=== PATIENT | male | born 1980 | race Caucasian/White ===

== ENCOUNTER 2016-08-29 19:40 | Emergency (ER) | payer BC ==
[~2016-08-29] VITALS: Ht 180.3 cm; Wt 87.5 kg
[~2016-08-29 19:40] MED LIST: BNT20 PO; FEXO1TAB46 PO; FLUT0.0529; METR-163 PO; MISCCAP80 PO; PEDICHW50 PO; PRED20TA2 PO; RBTDACL PO; SULF500T8 PO; TRIA0.1C20 TOP
[2016-08-29 19:48] VITALS: TEMP 36.6; Ht 180.3 cm; Wt 87.5 kg
[2016-08-29] MEDS ORDERED: SODIUM CHLORIDE 0.9% 1000ML 500 ML IV STA (21:28)
[2016-08-29] MEDS ORDERED: ONDANSETRON INJ 2 MG/ML 2 ML VIAL IV STA (21:28)
[2016-08-29] MEDS ORDERED: SODIUM CHLORIDE 0.9% 1000ML 1,000 ML IV STA (21:28)
[2016-08-29] MEDS ORDERED: KETOROLAC TROMETHAMINE 30 MG/ML VIAL IV STA (21:28)
[2016-08-29 21:56] LABS: HEMATOCRIT 42.8 % (42-52); MEAN CELL VOLUME 85.3 fL (80-100); MEAN CORPUSCULAR HEMOGLOBIN 30.1 pg (25-34); MEAN CORPUSCULAR HGB CONC 35.3 g/dl (32-36); MEAN PLATELET VOLUME 9.6 fL (7.4-10.4); PLATELET COUNT 187 K/uL (130-400); RED BLOOD COUNT 5.02 M/uL (4.7-6.1); WHITE BLOOD COUNT 6.61 K/uL (4.8-10.8)
[2016-08-29 22:02] LABS: MANUAL MICROSCOPIC REQUIRED? NO; REVIEW REQ? NO; URINE APPEARANCE CLEAR (CLEAR); URINE BILIRUBIN NEG (NEG); URINE COLOR DK YELLOW; URINE NITRITE NEG (NEG); URINE PH 5.5 (4.5-7.5); UROBILINOGEN NEG (NEG); ZZUR CULT IF INDIC CLEAN CATCH NO
[2016-08-29 22:14] LABS: BUN/CREATININE RATIO 17.5 (10-20); CALCIUM 8.7 mg/dl (8.5-10.1); CREATININE 1.1 mg/dl (0.60-1.40); POTASSIUM 3.8 mmol/L (3.5-5.1)
[2016-08-29 22:16] LABS: ALB/GLOB RATIO 1.7 (0.9-2)
--- NOTE | 2016-08-29 22:22 | DIAGNOSTIC IMAGING REPORT ---
CT OF THE ABDOMEN AND PELVIS WITHOUT CONTRAST, STONE PROTOCOL CLINICAL HISTORY: Right flank pain. Lower back pain. COMPARISON STUDY: CT of the abdomen and pelvis November 12, 2008 and MR enterography June 30, 2014. TECHNIQUE: Helical axial images of the abdomen and pelvis were obtained without IV or oral contrast according to renal stone protocol. FINDINGS: There is no hydronephrosis. There is a punctate calculus within the lower pole of the left kidney. Note is made of a 5 mm distal right ureteral calculus. There is no upstream dilatation. There is mild right periureteral infiltration. No additional ureteral calculi are identified. Evaluation the remainder of the abdomen and pelvis is suboptimal on this unenhanced exam. Unenhanced images of the liver, spleen, adrenal glands and pancreas are normal. There is no evidence for a bowel obstruction. There are numerous small pericolonic lymph nodes adjacent to the ascending colon and the transverse colon. Calcification within the right aspect of the prostate gland is incidentally noted. IMPRESSION: 1. 5 mm nonobstructing distal right ureteral calculus. No hydronephrosis or hydroureter. Minimal right periureteral infiltration. 2. Punctate left renal calculus. 3. Numerous small pericolonic lymph nodes adjacent to the ascending colon and transverse colon which represent a nonspecific finding. Electronically signed by: Wolfgang Celestin M.D. 08/29/2016 10:21 PM Dictated Date/Time: 08/29/2016 10:15 PM
[2016-08-29] MEDS ORDERED: TAMSULOSIN HCL 0.4 MG CAP PO ONE (22:30)
[2016-08-29] MEDS ORDERED: ONDA4TAB10 SL (22:36)
[2016-08-29] MEDS ORDERED: TAMS0.4C38 PO (22:36)
[2016-08-29] MEDS ORDERED: ONDANSETRON HOME PACK 4MG OD TAB PO ONE (22:45)
[2016-08-29 22:51] VITALS: BP 138/91; PULSE 88; O2SAT 100
--- NOTE | 2016-08-29 23:45 | EMERGENCY ROOM VISIT NOTE ---
History Report prepared by Sarah: Kendal Dawn Under the Supervision of: Dr. Emanuel Mitchell M.D. First contact with patient: 21:22 Chief Complaint: BACK PAIN Stated Complaint: LOWER RIGHT BACK PAIN, LOWER RIGHT ABDOMINAL PAIN History of Present Illness The patient is a 35 year old male who presents to the Emergency Room with complaints of worsening lower back pain beginning one week prior to arrival. He states that the pain radiates around to his right lower abdomen. The patient states that the pain will wax and wan in severity. He rates his pain as 8/10 in severity when it is at its worst. The patient did have back surgery a few years ago. His last PET scan did show kidney stones forming. He denies being dehydrated, he denies testicular pain. Source of History: patient Onset: one week [employer] Position: back (lower) Symptom Intensity: 8/10 Timing: waxes/wanes (in severity), worsening Associated Symptoms: + abdominal pain Note: Patient denies dehydration or testicular pain. Review of Systems See HPI for pertinent positives & negatives. A total of 10 systems reviewed and were otherwise negative. 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 Family History Cancer Diabetes mellitus Heart disease Kidney disease Social History Smoking Status: Never Smoker Smokeless Tobacco Use: No Alcohol Use: none Marital Status: Housing Status: lives with significant other Occupation Status: employed Current/Historical Medications Scheduled Ondasetron Odt (Zofran Odt), 4 MG SL Q6H Pediatric Multiple Vitamin W/ (Flintstones Chewable), 1 TAB PO QAM Probiotic Product (Probiotic), 1 CAP PO DAILY Sulfasalazine (Azulfidine), 1,000 MG PO TID Tamsulosin Hcl (Flomax), 0.4 MG PO DAILY Scheduled PRN Fexofenadine Hcl (Court), 180 MG PO DAILY PRN for Nasal Congestion Fluticasone Propionate (Nasal) (Flonase), 2 SPRAYS NA BID PRN for Nasal Congestion Allergies Coded Allergies: No Known Allergies (Verified , 08/29/16) Physical Exam Vital Signs Date Time Temp Pulse Resp B/P Pulse Ox O2 Delivery O2 Flow Rate FiO2 08/29/16 22:51 88 18 138/91 100 08/29/16 22:07 90 18 134/87 96 Room Air 08/29/16 19:48 36.6 103 20 139/97 97 Room Air Physical Exam GENERAL: Patient is in no acute distress. HEENT: No acute trauma, normocephalic atraumatic, mucous membranes moist, no nasal congestion, no scleral icterus. NECK: No stridor, no adenopathy, no meningismus, trachea is midline. LUNGS: Clear to auscultation bilaterally, no wheeze, no rhonchi, breath sounds equal. HEART: Without murmurs gallops or rubs, regular rate and rhythm. ABDOMEN: Soft, tenderness to right lower quadrant, bowel sounds positive, no hernias, no peritonitis. BACK: Right flank discomfort with percussion. EXTREMITIES: No cyanosis or edema, full range of motion of all the joints without pain or difficulty, no signs for acute trauma. NEUROLOGIC: Oriented x 3, no acute motor or sensory deficits, no focal weakness. SKIN: No rash, no jaundice, no diaphoresis. Medical Decision & Procedures ER Provider Diagnostic Interpretation: CT results as stated below per my review and radiologist interpretation: CT OF THE ABDOMEN AND PELVIS WITHOUT CONTRAST, STONE PROTOCOL CLINICAL HISTORY: Right flank pain. Lower back pain. COMPARISON STUDY: CT of the abdomen and pelvis November 12, 2008 and MR enterography June 30, 2014. TECHNIQUE: Helical axial images of the abdomen and pelvis were obtained without IV or oral contrast according to renal stone protocol. FINDINGS: There is no hydronephrosis. There is a punctate calculus within the lower pole of the left kidney. Note is made of a 5 mm distal right ureteral calculus. There is no upstream dilatation. There is mild right periureteral infiltration. No additional ureteral calculi are identified. Evaluation the remainder of the abdomen and pelvis is suboptimal on this unenhanced exam. Unenhanced images of the liver, spleen, adrenal glands and pancreas are normal. There is no evidence for a bowel obstruction. There are numerous small pericolonic lymph nodes adjacent to the ascending colon and the transverse colon. Calcification within the right aspect of the prostate gland is incidentally noted. IMPRESSION: 1. 5 mm nonobstructing distal right ureteral calculus. No hydronephrosis or hydroureter. Minimal right periureteral infiltration. 2. Punctate left renal calculus. 3. Numerous small pericolonic lymph nodes adjacent to the ascending colon and transverse colon which represent a nonspecific finding. Electronically signed by: Wolfgang Celestin M.D. 08/29/2016 10:21 PM Dictated Date/Time: 08/29/2016 10:15 PM Laboratory Results 08/29/16 21:45 08/29/16 21:45 Test 08/29/16 21:11 08/29/16 21:45 Urine Color DK YELLOW Urine Appearance CLEAR (CLEAR) Urine pH 5.5 (4.5-7.5) Urine Specific [place] 1.030 (1.000-1.030) Urine Protein NEG (NEG) Urine Glucose (UA) NEG (NEG) Urine Ketones NEG (NEG) Urine Occult Blood 3+ (NEG) Urine Nitrite NEG (NEG) Urine Bilirubin NEG (NEG) Urine Urobilinogen NEG (NEG) Urine Leukocyte Esterase NEG (NEG) Urine WBC (Auto) 1-5 /hpf (0-5) Urine RBC (Auto) >30 /hpf (0-4) Urine Hyaline Casts (Auto) 1-5 /lpf (0-5) Urine Epithelial Cells (Auto) 10-20 /lpf (0-5) Urine Bacteria (Auto) NEG (NEG) Red Blood Count 5.02 M/uL (4.7-6.1) Mean Corpuscular Volume 85.3 fL (80-100) Mean Corpuscular Hemoglobin 30.1 pg (25-34) Mean Corpuscular Hemoglobin Concent 35.3 g/dl (32-36) RDW Standard Deviation 37.1 fL (36.4-46.3) RDW Coefficient of Variation 12.1 % (11.5-14.5) Mean Platelet Volume 9.6 fL (7.4-10.4) Anion Gap 7.0 mmol/L (3-11) Est Creatinine Clear Calc Drug Dose 100.7 ml/min Estimated GFR () 101.0 Estimated GFR (Non- 87.1 BUN/Creatinine Ratio 17.5 (10-20) Calcium Level 8.7 mg/dl (8.5-10.1) Total Bilirubin 0.3 mg/dl (0.2-1) Aspartate Amino Transf (AST/SGOT) 14 U/L (15-37) Alanine Aminotransferase (ALT/SGPT) 28 U/L (12-78) Alkaline Phosphatase 115 U/L (45-117) Total Protein 6.3 gm/dl (6.4-8.2) Albumin 4.0 gm/dl (3.4-5.0) Globulin 2.3 gm/dl (2.5-4.0) Albumin/Globulin Ratio 1.7 (0.9-2) Laboratory results reviewed by me. Medications Administered Medications (Trade) Dose Ordered Sig/Kori Route Start Time Stop Time Status Last Admin Dose Admin Sodium Chloride (Nss 1000ml) 500 ml @ 999 mls/hr Q31M STAT IV 08/29/16 21:28 08/29/16 21:58 DC 08/29/16 21:43 999 MLS/HR Ondansetron HCl 4 mg 4 mg NOW STAT IV 08/29/16 21:28 08/29/16 21:30 DC 08/29/16 21:44 4 MG Sodium Chloride (Nss 1000ml) 1,000 ml @ 200 mls/hr Q5H STAT IV 08/29/16 21:28 08/29/16 23:15 DC 08/29/16 21:43 200 MLS/HR Ketorolac Tromethamine (Toradol Inj) 30 mg NOW STAT IV 08/29/16 21:28 08/29/16 21:30 DC 08/29/16 21:44 30 MG Tamsulosin HCl (Flomax Cap) 0.4 mg NOW ONCE PO 08/29/16 22:30 08/29/16 22:31 DC 08/29/16 22:48 0.4 MG Ondansetron HCl (ZOFRAN ODT 4MG Home Pack) 1 homepack UD ONCE PO 08/29/16 22:45 08/29/16 22:46 DC 08/29/16 22:48 1 HOMEPACK ED Course 2121: The patient was evaluated in room A4. A complete history and physical exam was performed. 2122: Urine Dip shows 250 blood and small ketones. 2127: Toradol Inj 30 mg IV, Sodium Chloride 1,000 ml @ 200 mls/hr IV, Zofran Inj 4 mg IV, Sodium Chloride 500 ml @ 999 mls/hr IV. 2229: Flomax Cap 0.4 mg PO. 2233: Reevaluated the patient. Discussed results and discharge instructions: He verbalized understanding and agreement. The patient is ready for discharge. Medical Decision The patient is a 35 year old male who presents to the ED with complaints of lower back pain. Differential diagnoses considered include renal colic, UTI, hepatitis, pancreatitis, musculoskeletal pain, hernia. There is no leukocytosis or concerning anemia. No significant electrolyte abnormality, kidney failure or hepatitis. Urinalysis shows hematuria, no infection. Abdominal and pelvis CT shows a 5 mm distal right ureteral stone. Some abdominal adenopathy was noted. The patient was given IV saline, IV Zofran, oral Flomax and IV Toradol, he is more comfortable. The patient is being discharged with a urine strainer, Flomax, Motrin/Tylenol for pain. He will follow with his doctor's office for a possible urology referral. He can return here for uncontrolled pain, fever or vomiting. Impression Primary Impression: Renal colic Additional Impression: Hematuria Scribe Attestation The scribe's documentation has been prepared under my direction and personally reviewed by me in its entirety. I confirm that the note above accurately reflects all work, treatment, procedures, and medical decision making performed by me. Departure Information Dispostion Home / Self-Care Prescriptions Tamsulosin Hcl (FLOMAX) 0.4 Mg Cap 0.4 MG PO DAILY, #10 CAP Prov: Emanuel Mitchell M.D. 08/29/16 Ondasetron Odt (ZOFRAN ODT) 4 Mg Tab 4 MG SL Q6H for Nausea, #15 TAB Prov: Emanuel Mitchell M.D. 08/29/16 Referrals Gerri Liu D.O. (PCP) Forms HOME CARE DOCUMENTATION FORM, IMPORTANT VISIT INFORMATION, Work Instructions Patient Instructions My [facility] Additional Instructions strain all the urine for the stone stay well hydrated motrin and tylenol for pain flomax daily to help pass the stone see your doctor for possible urology referral return for fever, vomiting or uncontrolled pain Problem Qualifiers
== END 2016-08-29 22:53 | disposition home or self-care (01) ==
LOC: C.EDB 19:42 → C.EDA 22:53
DX: N20.2 Calculus of kidney with calculus of ureter (principal); R31.9 Hematuria, unspecified; B19.20 Unspecified viral hepatitis C without hepatic coma; Z85.71 Personal history of Hodgkin lymphoma

== ENCOUNTER 2022-11-13 04:57 | Inpatient (IN) ==
[2022-11-13] MEDS ORDERED: ALUMINUM/MAGNESIUM SUSP 30 ML UDC ONE (05:17)
[2022-11-13] MEDS ORDERED: fentaNYL citrate PF 100 MCG/2 ML VIAL IV STA (05:19)
[2022-11-13] MEDS ORDERED: FAMOTIDINE 20MG IV PUSH 20 MG/5 ML SYR IV STA (05:21)
[2022-11-13] MEDS ORDERED: METOPROLOL TARTRATE 1 MG/ML VIAL IV STA (05:22)
[2022-11-13 05:42] LABS: Basophils # (auto) 0.05 K/uL (0-0.2); Basophils % (auto) 0.5 %; Eosinophils # (auto) 0.22 K/uL (0-0.50); Eosinophils % (auto) 2.3 %; Hematocrit (blood only) 46.8 % (42.0-52.0); Immature Granulocytes # (auto) 0.06 K/uL (0.01-0.20); Immature Granulocytes % (auto) 0.6 %; Lymphocytes # (auto) 1.93 K/uL (1.2-3.4); Lymphocytes % (auto) 20.6 %; Mean Corpuscular Hemoglobin 28.3 pg (25.0-34.0); Mean Corpuscular Hgb Conc 34.2 g/dL (32.0-36.0); Mean Corpuscular Volume 82.8 fL (80.0-100.0); Mean Platelet Volume 10.1 fL (9.4-12.4); Monocytes % (auto) 8.5 %; Neutrophils # (auto) 6.31 K/uL (1.40-6.50); Neutrophils % (auto) 67.5 %; Platelet Count 211 K/uL (130-400); RDW Coefficient of Variation 12.4 % (11.5-14.5); RDW Standard Deviation 37.4 fL (36.4-46.3); Red Blood Count 5.65 M/uL (4.70-6.10); White Blood Count 9.37 K/ul (4.8-10.8)
[2022-11-13 05:50] LABS: Albumin Globulin Ratio 2.3 (0.9-2); Albumin Level 4.3 gm/dl (3.4-5.0); BUN Creatinine Ratio 18.4 (10-20); Bilirubin,Total 0.6 mg/dl (0.2-1.0); Creatinine Clr Calc Pharmacy 91.7 ml/min; Est GFR (African American) 92.7 ml/min; Globulin 1.9 gm/dl (2.5-4.0); Potassium 3.7 mmol/L (3.5-5.1); Total Protein 6.2 gm/dl (6.0-8.3)
[2022-11-13 05:57] LABS: Troponin I High Sensitivity 39.8 pg/ml (0-20)
[2022-11-13] MEDS ORDERED: Heparin IV Adult Wt-Based Standard WITH Bolus Protocol IV STA (06:00)
[2022-11-13] MEDS ORDERED: NITROGLYCERIN SL 0.4 MG/TAB TAB SL STA (06:04)
[2022-11-13] MEDS ORDERED: HEPARIN SOD (PORCINE) 1000 UNIT/ML IV ONE ×2 (06:16→06:30)
--- NOTE | 2022-11-13 06:20 | Emergency Department Note ---
Impression & Plan Acute non-ST elevation myocardial infarction (NSTEMI) Admit to the [facility] service ED Provider Note NAME: KATHIE JAUREGUI AGE: 41 SEX: M ARRIVES VIA: Ambulance INFORMANT: Patient and his and father ED PROVIDER(S): Beth Laurent DO CHIEF COMPLAINT: Chest pain and jaw pain PLAN: Disposition: Admit to the [facility] service Condition: Guarded MEDICAL DECISION MAKING: This is a 41-year-old male patient who presents to the emergency department with chest pain and jaw pain that woke him from sleep at 3:30 AM. Patient gives history of the same type of discomfort that typically occurs after exertion over the past year. Patient was seen yesterday by his PCP for routine follow-up and was noted to be hypertensive and started on lisinopril. The patient gives a very good history for ischemic chest discomfort with anginal equivalent of neck pain and jaw pain. This has been happening for a year and has been intensifying over the past couple of days. Every time he exerts himself, he has left-sided chest discomfort that radiates into his neck and jaw. The symptoms resolved with rest. On presentation today, he has a normal-appearing EKG. He had no relief of his chest discomfort or neck and jaw discomfort with nitrog lycerin, morphine, or fentanyl. He was also given a GI cocktail and Pepcid, again with no relief. Chest x-ray was performed and revealed a narrow mediastinum. Patient did have a positive troponin. I did discuss the case with Dr. Brown asking if he would like the patient to go to the [facility] emergently but he preferred the patient to have echocardiogram and he would see him in the emergency department. The patient was started on IV heparin and I discussed the case with the [facility]. Triage Nursing notes reviewed and agree with them. Additional history obtained from patient's and father who are at the bedside Vital Signs: reviewed and remarkable for hypertension and tachycardia Differential diagnosis: GERD, STEMI, NSTEMI, angina, aortic dissection ER treatment provided: Cardiac monitoring Twelve-lead EKG GI cocktail IV Pepcid IV fentanyl IV Lopressor Sublingual nitro IV heparin bolus IV heparin drip Diagnostics interpreted by me: ECG: Normal sinus rhythm at a rate of [address] segment elevation or signs of ischemia. No ectopy. Repeat ECG: Normal sinus rhythm at a rate of [address] segment elevation or signs of ischemia. There is no ectopy. Cardiac Monitoring: Sinus tachycardia at 105 Laboratory studies: See below Imaging studies: As per my independent interpretation Portable chest x-ray: Narrow mediastinum with no obvious pulmonary pathology Consultation(s): Dr. Brown-cardiology HPI: 41/M arrives for evaluation of jaw pain and. Patient woke from sleep with severe diffuse jaw pain, neck pain, and left-sided chest pain. The patient has had exertional left-sided chest pain and jaw pain over the past year. He states that over the past couple of days he cannot do anything exertional without having the discomfort. He was seen at his PCP office yesterday and diagnosed with hypertension and started on lisinopril. They set him up to have an outpatient stress test. EMS had given the patient oral aspirin, sublingual nitroglycerin and IV morphine with no relief of his discomfort. PAST MEDICAL HISTORY:Ulcerative colitis, GERD, Hodgkin's lymphoma PAST SURGICAL HISTORY:See Below FAMILY HISTORY:Patient's father has coronary artery disease with 1 stent placed SOCIAL HISTORY:See Below HOME MEDICATIONS:See list ALLERGIES:None VITALS:See Below PHYSICAL EXAMINATION: HEENT: Head - normocephalic and atraumatic. Pupils are equal, round, and reactive to light. Extraocular eye muscles are intact, and sclera are anicteric. Nose - moist nasal mucosa without discharge. Mouth - moist buccal mucosa. Oropharynx is nonerythematous and there is no tonsillar exudate or edema noted. Neck: Supple; no JVD, nuchal rigidity, cervical lymphadenopathy, or auscultated bruits. Heart: Tachycardic rate and regular rhythm. There is a normal S1 and S2 with no murmurs, clicks, or gallops appreciated. Lungs: Clear to auscultation bilaterally with no wheezes, rales, or rhonchi. Abdomen: Soft, completely nontender, nondistended, with good bowel sounds. There are no palpable pulsatile masses or hepatosplenomegaly. There is no guarding, rigidity, or rebound noted. Extremities: No evidence of cyanosis, clubbing, or edema. There are easily palpable peripheral pulses. Skin: warm and dry with good turgor and no rashes. ED COURSE: Times/Reassessments: 505: Patient was evaluated in room C9. A complete history and physical was performed. A twelve-lead EKG was obtained. An order was placed for continuous cardiac monitoring. The patient was in a sinus tachycardia at a rate of 105. Patient was given a dose of GI cocktail, IV Pepcid, and IV fentanyl. A portable chest x-ray was performed. Upon repeat evaluation patient has had no relief of his discomfort. The patient still rates his chest discomfort as an 8/10. His EKG was repeated. It remains normal and unchanged. There is no ST segment elevation. He remains hypertensive. He was given a dose of IV Lopressor. He was then given sublingual nitroglycerin. The patient is now rating his chest discomfort as a 5/10. He does appear much more comfortable. Patient does have an elevated troponin. A rectal exam was performed and was heme-negative. I have ordered heparin bolus and heparin drip. I discussed the case with Dr. Brown from cardiology I discussed the case with the [facility]. I have kept the patient and his family abreast of the situation. I have personally spent greater than 50 minutes of critical care time in the direct management of this patient. This includes bedside care, interpretation of diagnostic studies, and testing, discussion with consultants, patient, and family members, and other required patient management activities. This 50 minutes is in excess of all separately billable procedures. Beth Laurent DO Past Med/Surg History Medical History Hepatitis C virus History of ulcerative colitis Surgical History History of abdominal surgery History of colonoscopy Social History Smoking Status: Never smoker Hx Alcohol Use: No Hx Substance Use: No Preferred Language: Monegasque Communication Ability: Effective Director Of Professional Services Required: No Beliefs That Will Affect Care: None Current Living Situation: Spouse and Family current occupational status: employed Other Information That Helps Us Care for You: No Feels Safe at Home: Yes Safety Concerns: Feels Safe At This Time Assistive Devices: Glasses Assistive Devices Comment: Bridge Allergies Allergies Allergy/AdvReac Type Severity Reaction Status Date / Time No Known Allergies Allergy Verified 08/21/22 07:40 Home Meds Home Medications Medication Instructions Recorded Confirmed fexofenadine 180 mg tablet 180 mg PO DAILY PRN Allergy 08/21/22 11/13/22 Symptoms fluticasone furoate 27.5 2 spray intranasal BID PRN Allergy 08/21/22 11/13/22 mcg/actuation nasal Symptoms spray,suspension mesalamine 1.2 gram tablet,delayed 2.4 g PO DAILY 08/21/22 11/13/22 release omeprazole 20 mg capsule,delayed 20 mg PO DAILY 08/21/22 11/13/22 release lisinopril 20 mg tablet 20 mg PO DAILY 11/13/22 11/13/22 Results & Data (ED) Vital Signs Vital Signs - 24 hr 11/13/22 05:03 11/13/22 05:29 11/13/22 05:10 Temperature 36.6 C 36.6 C Temperature Source Oral Oral Pulse Rate 102 H 101 H Pulse Rate [Left Finger] 102 H Pulse Rate from SpO2 Sensor Respiratory Rate 18 18 Respiratory Effort / Characteristics Non-Labored Non-Labored Respiratory Depth Normal Normal Respiratory Pattern Regular Regular Blood Pressure 160/125 H 167/128 H Blood Pressure Mean 136 Pulse Oximetry 98 98 Oxygen Delivery Method Room Air Oxygen Flow Rate Sepsis Recent Fever Within 48 Hours No Sepsis New/Unexplained Change in Mental Status No Sepsis Action Taken by Nursing No Action Required 11/13/22 05:05 11/13/22 05:05 11/13/22 06:41 Temperature Temperature Source Pulse Rate 107 H 105 H 84 Pulse Rate [Left Finger] Pulse Rate from SpO2 Sensor 102 H Respiratory Rate 15 18 Respiratory Effort / Characteristics Respiratory Depth Respiratory Pattern Blood Pressure 160/125 H Blood Pressure Mean 136 Pulse Oximetry 98 98 Oxygen Delivery Method Oxygen Flow Rate 3 Sepsis Recent Fever Within 48 Hours Sepsis New/Unexplained Change in Mental Status Sepsis Action Taken by Nursing 11/13/22 05:16 11/13/22 05:31 11/13/22 05:40 Temperature Temperature Source Pulse Rate 94 H 95 H 82 Pulse Rate [Left Finger] Pulse Rate from SpO2 Sensor 100 H 95 H 82 Respiratory Rate 22 15 12 Respiratory Effort / Characteristics Respiratory Depth Respiratory Pattern Blood Pressure 167/128 H 157/121 H 153/115 H Blood Pressure Mean 141 133 127 Pulse Oximetry 99 93 95 Oxygen Delivery Method Oxygen Flow Rate Sepsis Recent Fever Within 48 Hours Sepsis New/Unexplained Change in Mental Status Sepsis Action Taken by Nursing 11/13/22 06:00 11/13/22 06:10 11/13/22 06:20 Temperature Temperature Source Pulse Rate 90 85 88 Pulse Rate [Left Finger] Pulse Rate from SpO2 Sensor 88 87 87 Respiratory Rate 15 15 7 L Respiratory Effort / Characteristics Respiratory Depth Respiratory Pattern Blood Pressure 147/107 H 146/120 H 136/98 Blood Pressure Mean 120 128 110 Pulse Oximetry 98 100 98 Oxygen Delivery Method Oxygen Flow Rate Sepsis Recent Fever Within 48 Hours Sepsis New/Unexplained Change in Mental Status Sepsis Action Taken by Nursing 11/13/22 06:30 11/13/22 06:40 11/13/22 06:50 Temperature Temperature Source Pulse Rate 84 91 H 80 Pulse Rate [Left Finger] Pulse Rate from SpO2 Sensor 88 93 H 82 Respiratory Rate 12 14 10 L Respiratory Effort / Characteristics Respiratory Depth Respiratory Pattern Blood Pressure 144/99 H 171/115 H 145/106 H Blood Pressure Mean 114 133 119 Pulse Oximetry 98 100 100 Oxygen Delivery Method Oxygen Flow Rate Sepsis Recent Fever Within 48 Hours Sepsis New/Unexplained Change in Mental Status Sepsis Action Taken by Nursing 11/13/22 07:00 11/13/22 07:00 Temperature Temperature Source Pulse Rate 95 H Pulse Rate [Left Finger] Pulse Rate from SpO2 Sensor 95 H Respiratory Rate 19 Respiratory Effort / Characteristics Respiratory Depth Respiratory Pattern Blood Pressure 134/96 Blood Pressure Mean 111 Pulse Oximetry 99 Oxygen Delivery Method Oxygen Flow Rate Sepsis Recent Fever Within 48 Hours Sepsis New/Unexplained Change in Mental Status Sepsis Action Taken by Nursing Laboratory Data 11/13/22 05:10 11/13/22 05:10 Lab Results 11/13/22 11/13/22 11/13/22 Range/Units 05:10 05:10 06:04 WBC 9.37 (4.8-10.8) K/ul RBC 5.65 (4.70-6.10) M/uL Hgb 16.0 (14.0-18.0) g/dl Hct 46.8 (42.0-52.0) % MCV 82.8 (80.0-100.0) fL MCH 28.3 (25.0-34.0) pg MCHC 34.2 (32.0-36.0) g/dL RDW Std Deviation 37.4 (36.4-46.3) fL RDW Coeff of Kelsie 12.4 (11.5-14.5) % Plt Count 211 (130-400) K/uL MPV 10.1 (9.4-12.4) fL Immature Gran % (Auto) 0.6 % Neut % (Auto) 67.5 % Lymph % (Auto) 20.6 % [place] % (Auto) 8.5 % Eos % (Auto) 2.3 % Baso % (Auto) 0.5 % Neut # (Auto) 6.31 (1.40-6.50) K/uL Lymph # (Auto) 1.93 (1.2-3.4) K/uL [place] # (Auto) 0.80 H (0.11-0.59) K/uL Eos # (Auto) 0.22 (0-0.50) K/uL Baso # (Auto) 0.05 (0-0.2) K/uL Immature Gran # (Auto) 0.06 (0.01-0.20) K/uL PT (9.0-12.0) Seconds INR (0.9-1.1) APTT (21.0-31.0) Seconds PTT Ratio Sodium 139 (136-145) mmol/L Potassium 3.7 (3.5-5.1) mmol/L Chloride 105 (98-107) mmol/L Carbon Dioxide 27 (21-32) mmol/L Anion Gap 7 (3-11) BUN 21 (6-23) mg/dl Creatinine 1.14 (0.6-1.4) mg/dl Est Cr Clr Drug Dosing 91.7 ml/min Est GFR ( Amer) 92.7 ml/min Est GFR (Non-Af Amer) 80.0 ml/min BUN/Creatinine Ratio 18.4 (10-20) Glucose 104 H (70-99(Fasting)) mg/dl Calcium 9.0 (8.6-10.3) mg/dl Total Bilirubin 0.6 (0.2-1.0) mg/dl AST 17 (13-39) U/L ALT 36 (7-52) U/L Alkaline Phosphatase 105 H (34-104) U/L Troponin I High Sens 39.8 H (0-20) pg/ml Total Protein 6.2 (6.0-8.3) gm/dl Albumin 4.3 (3.4-5.0) gm/dl Globulin 1.9 L (2.5-4.0) gm/dl Albumin/Globulin Ratio 2.3 H (0.9-2) Lipase 31 (11-82) U/L SARS-CoV-2, RNA, NAAT NEGATIVE (NEGATIVE) 11/13/22 Range/Units 06:20 WBC (4.8-10.8) K/ul RBC (4.70-6.10) M/uL Hgb (14.0-18.0) g/dl Hct (42.0-52.0) % MCV (80.0-100.0) fL MCH (25.0-34.0) pg MCHC (32.0-36.0) g/dL RDW Std Deviation (36.4-46.3) fL RDW Coeff of Kelsie (11.5-14.5) % Plt Count (130-400) K/uL MPV (9.4-12.4) fL Immature Gran % (Auto) % Neut % (Auto) % Lymph % (Auto) % [place] % (Auto) % Eos % (Auto) % Baso % (Auto) % Neut # (Auto) (1.40-6.50) K/uL Lymph # (Auto) (1.2-3.4) K/uL [place] # (Auto) (0.11-0.59) K/uL Eos # (Auto) (0-0.50) K/uL Baso # (Auto) (0-0.2) K/uL Immature Gran # (Auto) (0.01-0.20) K/uL PT 10.9 (9.0-12.0) Seconds INR 1.0 (0.9-1.1) APTT 24.8 (21.0-31.0) Seconds PTT Ratio 0.9 Sodium (136-145) mmol/L Potassium (3.5-5.1) mmol/L Chloride (98-107) mmol/L Carbon Dioxide (21-32) mmol/L Anion Gap (3-11) BUN (6-23) mg/dl Creatinine (0.6-1.4) mg/dl Est Cr Clr Drug Dosing ml/min Est GFR ( Amer) ml/min Est GFR (Non-Af Amer) ml/min BUN/Creatinine Ratio (10-20) Glucose (70-99(Fasting)) mg/dl Calcium (8.6-10.3) mg/dl Total Bilirubin (0.2-1.0) mg/dl AST (13-39) U/L ALT (7-52) U/L Alkaline Phosphatase (34-104) U/L Troponin I High Sens (0-20) pg/ml Total Protein (6.0-8.3) gm/dl Albumin (3.4-5.0) gm/dl Globulin (2.5-4.0) gm/dl Albumin/Globulin Ratio (0.9-2) Lipase (11-82) U/L SARS-CoV-2, RNA, NAAT (NEGATIVE) Administered Medications Aspirin (Aspirin 81 Mg Ectab) 81 mg PO [facility] Stop: 12/13/22 08:59 Last Admin: 11/13/22 08:47 Dose: 81 mg Documented By: ADRIANNE Atorvastatin Calcium ([facility]orvastatin 40 Mg Tab) [facility] Stop: 12/13/22 09:59 Last Admin: 11/13/22 12:12 Dose: 80 mg Documented By: ADRIANNE Heparin Sodium/Dextrose (Heparin Sodium/Dextrose) 25,000 units in 500 mls @ 24 mls/hr IV .[id number] [facility]; Protocol Stop: 12/13/22 06:29 Last Titration: 11/13/22 13:43 Dose: 1,200 units/hr, 24 mls/hr Documented By: ADRIANNE Co-signed By: DALE Admin: 11/13/22 06:26 Dose: 1,450 units/hr, 29 mls/hr Documented By: TEVIN Co-signed By: FOREST Metoprolol Tartrate (Metoprolol Tartrate 25 Mg Tab) 25 mg PO BID [facility] Stop: 12/13/22 09:59 Last Admin: 11/13/22 12:12 Dose: 25 mg Documented By: ADRIANNE Nitroglycerin (Nitroglycerin 2% Ointment 30gm Tube) 0.5 inch EXT Q6H [facility] Stop: 12/13/22 06:59 Last Admin: 11/13/22 12:12 Dose: 0.5 inch Documented By: Admin: 11/13/22 07:19 Dose: 0.5 inch Documented By: KAMILAH Pantoprazole Sodium (Pantoprazole 40 Mg Tab) 40 mg PO DAILY [facility] Stop: 12/13/22 08:59 Last Admin: 11/13/22 08:47 Dose: 40 mg Documented By: ADRIANNE Discontinued Medications Al Hydrox/Mg Hydrox/Simethicone (Aluminum/Magnesium Susp 30 Ml Udc) Confirm Administered Dose 30 ml .ROUTE .STK-MED ONE Stop: 11/13/22 05:18 Last Admin: 11/13/22 06:12 Dose: 30 ml Documented By: TEVIN Fentanyl Citrate (Fentanyl Citrate Pf 100 Mcg/2 Ml Vial) 100 mcg IV NOW STA Stop: 11/13/22 05:20 Last Admin: 11/13/22 05:24 Dose: 100 mcg Documented By: FOREST Fentanyl Citrate (Fentanyl Citrate Pf 100 Mcg/2 Ml Vial) Confirm Administered Dose 100 mcg .ROUTE .STK-MED ONE Stop: 11/13/22 09:56 Last Increment: 11/13/22 15:07 Dose: 50 mcg Documented By: KETURAH Heparin Sodium (Porcine) (Heparin Sod (Porcine) 1000 Unit/Ml) 6,000 units IV NOW ONE Stop: 11/13/22 06:31 Last Admin: 11/13/22 06:27 Dose: 6,000 units Documented By: TEVIN Co-signed By: FOREST Heparin Sodium/Dextrose (Heparin Iv Adult Wt-Based Standard With Bolus Protocol) 1 each IV NOW STA; Protocol Stop: 11/13/22 06:01 Last Admin: 11/13/22 07:23 Dose: Not Given Documented By: KAMILAH Famotidine (Pepcid 20mg Iv Push) 20 mg in 5 mls @ 2.5 mls/min IV NOW STA Stop: 11/13/22 05:22 Last Admin: 11/13/22 05:30 Dose: 2.5 mls/min Documented By: TEVIN Metoprolol Tartrate (Metoprolol Tartrate 1 Mg/Ml Vial) 5 mg IV NOW STA Stop: 11/13/22 05:23 Last Admin: 11/13/22 05:29 Dose: 5 mg Documented By: TEVIN Midazolam HCl (Midazolam Hcl 1 Mg/Ml 2ml Vial) Confirm Administered Dose 2 mg .ROUTE .STK-MED ONE Stop: 11/13/22 14:35 Last Increment: 11/13/22 15:08 Dose: 1 mg Documented By: KETURAH Morphine Sulfate (Morphine Sulfate 4 Mg/Ml 1 Ml Carp\Vial) 3 mg IV NOW STA Stop: 11/13/22 06:57 Last Admin: 11/13/22 07:20 Dose: 3 mg Documented By: KAMILAH Nitroglycerin (Nitroglycerin Sl 0.4 Mg/Tab Tab) 0.4 mg SL NOW STA Stop: 11/13/22 06:05 Last Admin: 11/13/22 06:16 Dose: 0.4 mg Documented By: TEIVN Imaging Data Radiologist's Impression: Chest X-Ray 11/13/22 05:18 XR chest 1V portable HISTORY: 41 years-old Male Chest pain, nonspecific COMPARISON: 06/25/2014 TECHNIQUE: AP view of the chest FINDINGS: Cardiomediastinal and hilar silhouettes are within normal limits. No pneumothorax, pleural effusion, airspace consolidation or pulmonary edema. Bones appear grossly intact. Mild levoscoliosis of the upper thoracic spine. IMPRESSION: No acute process. ACT 112: Negative or not required by law. The above report was generated using voice recognition software. It may contain grammatical, syntax or spelling errors. Electronically signed by: Sven Jackson M.D. 11/13/2022 6:46 AM Discharge Plan Visit Data Chief Complaint: Chest Pain Stated Complaint: Jaw Pain, Chest Pain ED Provider: Beth Laurent Discharge Problem: Acute non-ST elevation myocardial infarction (NSTEMI) Patient Disposition: Admitted As Inpatient Discharge Instructions Interventions: ED Discharge Assessment Last Done: 11/13/22 07:42
[2022-11-13] MEDS ORDERED: HEPARIN SODIUM/DEXTROSE 25,000 UNITS/500 ML BAG IV SCH (06:30)
--- NOTE | 2022-11-13 06:48 | XRay Report ---
XR chest 1V portable HISTORY: 41 years-old Male Chest pain, nonspecific COMPARISON: 06/25/2014 TECHNIQUE: AP view of the chest FINDINGS: Cardiomediastinal and hilar silhouettes are within normal limits. No pneumothorax, pleural effusion, airspace consolidation or pulmonary edema. Bones appear grossly intact. Mild levoscoliosis of the upp er thoracic spine. IMPRESSION: No acute process. ACT 112: Negative or not required by law. The above report was generated using voice recognition software. It may contain grammatical, syntax o r spelling errors. Electronically signed by: Sven Jackson M.D. 11/13/2022 6:46 AM
[2022-11-13] MEDS ORDERED: MoRPHine SULFATE 4 MG/ML 1 ML CARP\\VIAL IV STA (06:56)
[2022-11-13] MEDS ORDERED: ASPIRIN 81 MG CHEW PO STA (07:06)
[2022-11-13 07:16] LABS: Partial Thromboplastin Ratio 0.9; Partial Thromboplastin Time 24.8 Seconds (21.0-31.0); Prothrombin Time 10.9 Seconds (9.0-12.0)
[2022-11-13] MEDS: NITROGLYCERIN 2% OINTMENT 30GM TUBE EXT SCH ×2 (07:19→12:12)
[2022-11-13] MEDS ORDERED: ACETAMINOPHEN 325 MG TAB PO PRN (08:11)
[2022-11-13] MEDS ORDERED: NITROGLYCERIN SL 0.4 MG/TAB TAB SL PRN (08:11)
--- NOTE | 2022-11-13 08:39 | Cardiology Consultation ---
Date of Consultation November 13, 2022 Assessment & Plan (1) NSTEMI (non-ST elevated myocardial infarction): * Patient with symptoms consistent with exertional angina over the last several months to 1 year, culminating in symptoms occurring with lower levels of exercise, and now with rest discomfort onset earlier this morning. Initial high-sensitivity troponin was 39.8 and has trended up to 802 PG per mL. EKG without repolarization changes. Echocardiogram without regional wall motion abnormalities. * Patient feeling improved although not completely angina free having received unfractioned heparin, topical nitroglycerin, IV metoprolol x1 dose. * Patient received 324 mg of aspirin chewed at home prior to EMS this morning. * Will add metoprolol to tartrate 25 mg twice daily orally, atorvastatin 80 mg daily. * Case discussed with Dr. Brown of interventional cardiology, will plan for cardiac catheterization in an expedited fashion today. (2) Hypertension: * Patient is already received a dose of IV metoprolol, oral metoprolol added. Likely add back lisinopril. (3) Dyslipidemia: * Atorvastatin 80 mg daily ordered. I spent a total of 65 minutes on the date of service in preparation, delivery, and documentation of the care provided to this patient, excluding any time spent in the performance of separately billed services. History of Present Illness Attending Physician: Mingo Otto MD History of Present Illness Mukund Galarza seen in cardiology consultation per the request of Dr Franco for the evaluation of chest and jaw discomfort. He had been seen by Dr Pack of family practice at [facility] yesterday as an acute visit for recent complaints of exertional chest discomfort that radiates to his jaw after exercise and doing physical labor. Blood pressure at the time of the visit was 174/116. Lisinopril was prescribed as the patient had a history of high blood pressure readings but was not on previous treatment. Patient describes symptoms over the last year of progressive exertional chest discomfort rating up to his jaw with physical labor. 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 Last week he was on a family vacation with his spouse and 2 children and noticed the symptoms with activity such as riding a bicycle with the children. Typically his symptoms have come on with aerobic exertion and ceased with rest. This morning however he woke up at 2:30 AM with resting discomfort at this time was not exertional, and his symptoms persisted until treatment in the emergency room receiving topical nitroglycerin and morphine. Chest discomfort is resolved at present, but he still has a mild degree of residual jaw discomfort. He is in no acute distress at present. He has a history of recurrent Hodgkin lymphoma diagnosed at the age of 27 treated with radiation therapy and chemotherapy. He had previously followed with oncology at [facility], and most recently has followed with [facility]. History is otherwise remarkable for ulcerative colitis. His most recent lipid panel dates back to 2018 at which time his LDL was 149 mg/dL. He underwent an exercise stress echocardiogram in 2011 which was negative for ischemia having achieved a high workload, 10 minutes on a Branden protocol, 12 METS. Family History: There is alive at the age of 66, having had a coronary stent at the age of 62 Mother is alive with no history of coronary disease, but is treated for hypertension Grandfather with history of coronary heart disease in the 1960s Social History: Patient is , and his spouse Sharron, and his father, João accompany him at the bedside He has 2 children. He is a non-smoker. 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 Allergies Allergy/AdvReac Type Severity Reaction Status Date / Time No Known Allergies Allergy Verified 08/21/22 07:40 Home Medications Medication Instructions Recorded Confirmed Type fexofenadine 180 mg tablet 180 mg PO DAILY PRN Allergy 08/21/22 11/13/22 History Symptoms fluticasone furoate 27.5 2 spray intranasal BID PRN Allergy 08/21/22 11/13/22 History mcg/actuation nasal Symptoms spray,suspension mesalamine 1.2 gram tablet,delayed 2.4 g PO DAILY 08/21/22 11/13/22 History release omeprazole 20 mg capsule,delayed 20 mg PO DAILY 08/21/22 11/13/22 History release lisinopril 20 mg tablet 20 mg PO DAILY 11/13/22 11/13/22 History Patient History Medical History Hepatitis C virus History of ulcerative colitis Surgical History History of abdominal surgery History of colonoscopy Social History Smoking Status: Never smoker Hx Alcohol Use: No Hx Substance Use: No Preferred Language: Ukrainian Communication Ability: Effective Manager Presentation Required: No Beliefs That Will Affect Care: None Current Living Situation: Spouse and Family current occupational status: employed Other Information That Helps Us Care for You: No Feels Safe at Home: Yes Safety Concerns: Feels Safe At This Time Assistive Devices: Glasses Assistive Devices Comment: Bridge Review of Systems Review of Systems: All systems reviewed & are unremarkable except as noted in HPI & below Physical Exam Physical Exam: Temp Pulse Resp BP Pulse Ox O2 Del Method O2 Flow Rate 36.3 C L 90 18 149/107 H 97 Room Air 3 11/13/22 08:11 11/13/22 08:11 11/13/22 08:11 11/13/22 08:11 11/13/22 08:11 11/13/22 08:11 11/13/22 06:41 Constitutional: WD/WN, vitals as above Eyes: PERRL, conjunctivae normal, anicteric sclerae Respiratory: normal respiratory effort, lungs clear to auscultation Cardiovascular: RRR, no murmur, no edema Gastrointestinal (Abdomen): normal bowel sounds, soft, nontender, no hepatosplenomegaly Skin: no rashes, warm and dry Neurologic: PERRL, EOMI, accommodation nl, no face palsy, no dysarthria Psychiatric: A+Ox3, euthymic affect Results & Data Laboratory Results Cardiac Enzymes 11/13/22 11/13/22 Range/Units 05:10 08:25 AST 17 (13-39) U/L Troponin I High Sens 39.8 H 802.2 H* D (0-20) pg/ml Coagulation 11/13/22 Range/Units 06:20 PT 10.9 (9.0-12.0) Seconds APTT 24.8 (21.0-31.0) Seconds CBC 11/13/22 Range/Units 05:10 WBC 9.37 (4.8-10.8) K/ul RBC 5.65 (4.70-6.10) M/uL Hgb 16.0 (14.0-18.0) g/dl Hct 46.8 (42.0-52.0) % Plt Count 211 (130-400) K/uL Neut # (Auto) 6.31 (1.40-6.50) K/uL Lymph # (Auto) 1.93 (1.2-3.4) K/uL [place] # (Auto) 0.80 H (0.11-0.59) K/uL Eos # (Auto) 0.22 (0-0.50) K/uL Baso # (Auto) 0.05 (0-0.2) K/uL Comprehensive Metabolic Panel 11/13/22 Range/Units 05:10 Sodium 139 (136-145) mmol/L Potassium 3.7 (3.5-5.1) mmol/L Chloride 105 (98-107) mmol/L Carbon Dioxide 27 (21-32) mmol/L BUN 21 (6-23) mg/dl Creatinine 1.14 (0.6-1.4) mg/dl Glucose 104 H (70-99(Fasting)) mg/dl Calcium 9.0 (8.6-10.3) mg/dl AST 17 (13-39) U/L ALT 36 (7-52) U/L Alkaline Phosphatase 105 H (34-104) U/L Total Protein 6.2 (6.0-8.3) gm/dl Albumin 4.3 (3.4-5.0) gm/dl Intake and Output 11/12/22 11/13/22 11/13/22 22:59 06:59 14:59 Other: Weight 90 kg 93.5 kg Weight Measurement Method Estimated by Patient Built in [facility] Patient Weight 11/14/22 06:59 Weight 93.5 kg Diagnostic Findings Be performed at the bedside at the time my assessment on 11/13/2022 at 9:14 AM revealed normal sinus rhythm 81 bpm, normal EKG. Bedside echocardiogram performed today and reviewed independently revealed no pericardial effusion, normal biventricular systolic function, no left ventricular wall motion abnormalities, no significant valvular heart disease. No pulmonary hypertension.
--- NOTE | 2022-11-13 08:57 | History and Physical Report ---
DATE OF ADMISSION: 11/13/2022. CHIEF COMPLAINT: Bilateral jaw pain radiating to chest. HISTORY OF PRESENT ILLNESS: This is a 41-year-old male with past medical history significant for hyperlipidemia, hypertension, ulcerative colitis, history of lymphoma. For ulcerative colitis, the patient is on mesalamine. The patient states UC is under control. The patient has history of lymphoma. Follows with [facility]. Says he has chemo and radiation, last chemo was in 2012. Follows with a PET scan. Last year PET scan chronic findings and just saw his oncologist in June of this year. Comes because of bilateral jaw pain and chest pain. The patient says since last one year, with exertion he is getting bilateral jaw pains, initially with heavy work and subsides after resting for 5 minutes, but lately it has progressed to even walking to his parking place brings on this pain and subsides with rest. He saw PCP yesterday and he had EKG done, which was nonischemic. His blood pressure was elevated and the plan was to get a stress echo and was started on lisinopril. Today morning around 3:30 a.m., he woke up with severe bilateral jaw pains radiating to his chest, it was not subsiding. EMS was called and en route he was given aspirin, in the ER he was given nitro an fentanyl. But was still having waves of this jaw pain. When I saw him, it was around 3/10, but after some time it went to 9. Has some nausea and sweating. Denies any shortness of breath. Denies any cough, no fevers, no abdominal pain. Normal bowel and bladder movements. Denies any blood in the stool or black stools. No headache. Vision is okay. No cough. EKG had no acute ST changes and troponin is 39. ER talked to interventional radiology, plan to do echo now. ALLERGIES: No known drug allergies. PAST MEDICAL HISTORY: As mentioned above. PAST SURGICAL HISTORY: Appendectomy, colonoscopy, lumbosacral spine injection, back surgery, tonsillectomy and adenoidectomy. MEDICATIONS: As per [facility], the patient was started on lisinopril 20 mg p.o. daily, omeprazole 20 mg p.o. daily, mesalamine 2.4 g daily, probiotics daily, Court 180 mg as needed. FAMILY HISTORY: Significant for brother has allergies; father has hypertension; mother has hypertension, high cholesterol; maternal grandfather has PR at age greater than 60 years; paternal grandmother has PR at age of greater than 60 years. SOCIAL HISTORY: , no smoking, no alcohol, no drug use. REVIEW OF SYSTEMS: As per HPI. Rest of review of systems is negative. PHYSICAL EXAMINATION: GENERAL: The patient is of moderate build, not in acute distress. VITAL SIGNS: Temperature 36.6, pulse 83, respiratory rate 20, blood pressure 141/92, oxygen 100% on room air. HEENT: Pupils equal, round, and reactive to light. Oral mucosa moist. NECK: No JVD. No neck masses seen. No obvious carotid bruits. CARDIOVASCULAR: S1 and S2 heard, regular rate and rhythm. No murmur, no gallop. RESPIRATORY SYSTEM: Normal AP diameter. No accessory muscle use. No wheezing, no crackles. ABDOMEN: Soft, bowel sounds present, nontender, no distention. CENTRAL NERVOUS SYSTEM: Cranial nerves II-XII grossly intact, nonfocal. EXTREMITIES: No edema, no erythema. LABORATORY DATA: WBC 9.3, hemoglobin 16, hematocrit 46.8, platelets 211. PT 10.9, INR 1, APTT 24.8. Sodium 139, potassium 3.7, chloride 105, bicarb 27, BUN 21, creatinine 1.1, serum glucose 104, calcium 9, total bilirubin 0.6, AST 17, ALT 36, alkaline phosphatase 105. Troponin I high sensitivity 39.8, lipase 31. SARS-CoV-2 rapid test negative. IMAGING DATA: Chest x-ray, no acute process. EKG: Normal sinus rhythm at a rate of 96, no acute ST changes seen. ASSESSMENT AND PLAN: This is a 41-year-old male who presents with severe bilateral jaw pain radiating to the chest. 1. Severe bilateral jaw pain radiating to the chest: Possible non-ST elevated myocardial infarction, troponin of 39.8. Started on IV heparin, placed on nitroglycerin paste, received aspirin. Received fentanyl in ER with no resolution of symptoms, Interventional cardiology notified by ER. Plan for echo and further recommendations as per Cardiology. Closely monitor. 2. Hypertension: Recently started on lisinopril. The patient's said he took one dose. Will be currently placed on nitroglycerin paste. Will monitor the blood pressure. 3. Ulcerative colitis: Continue his home medication of mesalamine. 4. History of lymphoma: Seems to be in remission. Follow with [facility]. 5. Deep venous thrombosis prophylaxis: On IV heparin. Addendum: after a dose of morphine says his pain much improved. Second troponin pending at this time. DISPOSITION: Closely monitor in tele floor. Level 1 full code. Job ID: [id number] MTDD
[2022-11-13] MEDS ORDERED: PANTOprazole 40 MG TAB PO SCH (09:00)
[2022-11-13] MEDS ORDERED: ASPIRIN 81 MG ECTAB PO SCH (09:00)
[2022-11-13] MEDS ORDERED: fentaNYL citrate PF 100 MCG/2 ML VIAL ONE ×2 (09:55→14:35)
[2022-11-13] MEDS ORDERED: MIDAZOLAM HCL 1 MG/ML 2ML VIAL ONE ×2 (09:55→14:34)
[2022-11-13] MEDS ORDERED: niCARdipine HCL INJ 2.5 MG/ML 10 ML AMP ONE (09:55)
[2022-11-13] MEDS ORDERED: HEPARIN (PORCINE) 1000 UNIT/ML 10 ML (CATH LAB USE ONLY) ONE (09:55)
[2022-11-13] MEDS ORDERED: NITROGLYCERIN/D5W 100MCG/ML 20ML SYR ONE (09:57)
[2022-11-13] MEDS ORDERED: ATORVASTATIN 40 MG TAB PO SCH (10:00)
[2022-11-13] MEDS ORDERED: METOPROLOL TARTRATE 25 MG TAB PO SCH (10:00)
--- NOTE | 2022-11-13 10:22 | Pre Anesthesia Assessment ---
Date of Service November 13, 2022 Pre Sedation Assessment Vital Signs Temp Pulse Pulse Resp BP BP Pulse Ox 11/13/22 08:11 36.3 C L 90 18 149/107 H 97 11/13/22 07:42 83 20 141/92 H 100 11/13/22 07:30 75 10 L 99 11/13/22 07:30 137/97 11/13/22 07:20 80 7 L 99 11/13/22 07:20 145/101 H 11/13/22 07:10 77 15 100 11/13/22 07:10 138/100 11/13/22 07:00 95 H 19 99 11/13/22 07:00 134/96 11/13/22 06:50 80 10 L 145/106 H 100 11/13/22 06:40 91 H 14 171/115 H 100 11/13/22 06:30 84 12 144/99 H 98 11/13/22 06:20 88 7 L 136/98 98 11/13/22 06:10 85 15 146/120 H 100 11/13/22 06:00 90 15 147/107 H 98 11/13/22 05:40 82 12 153/115 H 95 11/13/22 05:31 95 H 15 157/121 H 93 11/13/22 05:16 94 H 22 167/128 H 99 11/13/22 06:41 84 18 98 11/13/22 05:05 105 H 11/13/22 05:05 107 H 15 160/125 H 98 11/13/22 05:10 36.6 C 102 H 18 98 11/13/22 05:29 101 H 167/128 H 11/13/22 05:03 36.6 C 102 H 18 160/125 H 98 O2 Del Method O2 Flow Rate 11/13/22 08:11 Room Air 11/13/22 07:42 Room Air 11/13/22 07:30 11/13/22 07:30 11/13/22 07:20 11/13/22 07:20 11/13/22 07:10 11/13/22 07:10 11/13/22 07:00 11/13/22 07:00 11/13/22 06:50 11/13/22 06:40 11/13/22 06:30 11/13/22 06:20 11/13/22 06:10 11/13/22 06:00 11/13/22 05:40 11/13/22 05:31 11/13/22 05:16 11/13/22 06:41 3 11/13/22 05:05 11/13/22 05:05 11/13/22 05:10 Room Air 11/13/22 05:29 11/13/22 05:03 Cardiovascular RRR, no murmur, no edema Respiratory normal respiratory effort, lungs clear to auscultation Pre-Sedation Airway Assessment Smoking Status: Never smoker Hx Sleep Apnea: No Short, Thick Neck: No Thyromental Distance: > or= 3.5 Finger Breadths Oral Cavity: + WNL Mallampati Class: II ASA: ASA3 NPO Status Date of Last Intake of Fluids: 11/13/22 Time of Last Intake of Fluids: 08:00 Last Oral Intake of Fluids Comment: sip with meds Date of Last Intake of Solid Food: 11/12/22 Notes The planned sedation has been discussed with the patient. Informed Consent was obtained. I have identified the patient, determined the appropriateness of sedation and have assessed the patient immediately prior to the procedure. All medicine(s) and interventions are by my order.
--- NOTE | 2022-11-13 11:38 | Post Anesthesia Assessment ---
Date of Service November 13, 2022 Post Sedation Assessment Vital Signs Temp Pulse Pulse Resp BP BP Pulse Ox 11/13/22 08:11 11/13/22 08:11 36.3 C L 90 18 149/107 H 97 11/13/22 07:42 83 20 141/92 H 100 11/13/22 07:30 75 10 L 99 11/13/22 07:30 137/97 11/13/22 07:20 80 7 L 99 11/13/22 07:20 145/101 H 11/13/22 07:10 77 15 100 11/13/22 07:10 138/100 11/13/22 07:00 95 H 19 99 11/13/22 07:00 134/96 11/13/22 06:50 80 10 L 145/106 H 100 11/13/22 06:40 91 H 14 171/115 H 100 11/13/22 06:30 84 12 144/99 H 98 11/13/22 06:20 88 7 L 136/98 98 11/13/22 06:10 85 15 146/120 H 100 11/13/22 06:00 90 15 147/107 H 98 11/13/22 05:40 82 12 153/115 H 95 11/13/22 05:31 95 H 15 157/121 H 93 11/13/22 05:16 94 H 22 167/128 H 99 11/13/22 06:41 84 18 98 11/13/22 05:05 105 H 11/13/22 05:05 107 H 15 160/125 H 98 11/13/22 05:10 36.6 C 102 H 18 98 11/13/22 05:29 101 H 167/128 H 11/13/22 05:03 36.6 C 102 H 18 160/125 H 98 O2 Del Method O2 Flow Rate 11/13/22 08:11 Room Air 11/13/22 08:11 Room Air 11/13/22 07:42 Room Air 11/13/22 07:30 11/13/22 07:30 11/13/22 07:20 11/13/22 07:20 11/13/22 07:10 11/13/22 07:10 11/13/22 07:00 11/13/22 07:00 11/13/22 06:50 11/13/22 06:40 11/13/22 06:30 11/13/22 06:20 11/13/22 06:10 11/13/22 06:00 11/13/22 05:40 11/13/22 05:31 11/13/22 05:16 11/13/22 06:41 3 11/13/22 05:05 11/13/22 05:05 11/13/22 05:10 Room Air 11/13/22 05:29 11/13/22 05:03 Recovery Score Activity: Moves 4 extremities Respiration: Deep Breath/Cough Circulation: +/-20% PreAnes Value Consciousness: Fully Awake Oxygen Saturation: > 92% On Room Air Discharge Sedation Level of Care: Fast Track Phase II Post Sedation Plan On clinical assessment, the patient appears to have tolerated the sedation without complications. Patient is recovering as anticipated. Patient will continue to be monitored by nursing and may be discharged when sedation discharge criteria are met per below protocol. Upon Completions of procedure up to 15 minutes continue every 5 minute vital signs and the P.A.R. score; then discharge to a Phase I or Fast Track to Phase II per the following guidelines: * Discharge Patient to appropriate Phase II area if PAR is 8 or greater or return to pre- procedure baseline. The post - procedure orders will be as directed. * If PAR score is less than 8 or not return to pre-procedure baseline then patient will follow Phase I monitoring till PAR is reached for Phase II. The Phase I may be done in procedure room or may call to secure a Phase I area. * If naloxone or flumazenil are used for reversal, hold in Phase I for continued monitoring from when last reversal dose was given for a minimum of 60 minutes or longer pending the nurse and/or physician discretion of patient condition before discharge to Phase II. Please call the Sedation Physician to re-evaluate and complete post-note for discharge to Phase II area. Do NOT discharge from procedure sedation or Phase 1 until post- sedation evaluation note is complete by procedure /sedation MD Sedation Discharge Instructions to be given to the patient at discharge to home. [facility] Procedure Codes (Charges) Indication for Procedure Indication for procedure: NSTEMI Sedation/Anesthesia Procedure 1: Sedation/Anesthesia: 02917 Mod Sedation by the same physician;Init15 Min Child Age 5 & Up (initial 15 min, start 1039, end 1124) Total Sedation Time (minutes): 32 Procedure 2: Sedation/Anesthesia: 71255 Mod Sedation by the same physician; Ea [id number] Minutes (additional 17 min) Total Sedation Time (minutes): 32
--- NOTE | 2022-11-13 12:24 | Discharge Summary ---
Date of Service November 13, 2022 Admission HPI Per Admitting Provider This is a 41-year-old male with past medical history significant for hyperlipidemia, hypertension, ulcerative colitis, history of lymphoma. For ulcerative colitis, the patient is on mesalamine. The patient states UC is under control. The patient has history of lymphoma. Follows with [facility]. Says he has chemo and radiation, last chemo was in 2012. Follows with a PET scan. Last year PET scan chronic findings and just saw his oncologist in June of this year. Comes because of bilateral jaw pain and chest pain. The patient says since last one year, with exertion he is getting bilateral jaw pains, initially with heavy work and subsides after resting for 5 minutes, but lately it has progressed to even walking to his parking place brings on this pain and subsides with rest. He saw PCP yesterday and he had EKG done, which was nonischemic. His blood pressure was elevated and the plan was to get a stress echo and was started on lisinopril. Today morning around 3:30 a.m., he woke up with severe bilateral jaw pains radiating to his chest, it was not subsiding. EMS was called and en route he was given aspirin, in the ER he was given nitro an fentanyl. But was still having waves of this jaw pain. When I saw him, it was around 3/10, but after some time it went to 9. Has some nausea and sweating. Denies any shortness of breath. Denies any cough, no fevers, no abdominal pain. Normal bowel and bladder movements. Denies any blood in the stool or black stools. No headache. Vision is okay. No cough. EKG had no acute ST changes and troponin is 39. ER talked to interventional radiology, plan to do echo now. Admission Exam Per Admitting Provider Constitutional: WD/WN, vitals as above, NAD, sitting up in bed, pleasant, conversing easily Respiratory: normal respiratory effort, lungs clear to auscultation, no wheeze, rales, rhonchi. Normal insp/exp effort, no accessory muscle use Cardiovascular: RRR, no murmur, no edema Vessels: no JVD or carotid bruit Chest: normal inspection of chest Abdomen: normal bowel sounds, soft, nontender, no hepatosplenomegaly Musculoskeletal: no cyanosis or clubbing, extremities motor strength 5/5 Skin: no rashes, warm and dry normal turgor Neurologic: PERRL, EOMI, accommodation nl, no face palsy, no dysarthria CN's II- XI intact bilaterally and moves all extremities Psychiatric: A+Ox3, euthymic affect Principal Diagnosis NSTEMI with left main disease Discharge Exam Constitutional: WD/WN, vitals as above, NAD, sitting up in bed, pleasant, conversing easily Respiratory: normal respiratory effort, lungs clear to auscultation, no wheeze, rales, rhonchi. Normal insp/exp effort, no accessory muscle use Cardiovascular: RRR, no murmur, no edema Vessels: no JVD or carotid bruit Chest: normal inspection of chest Abdomen: normal bowel sounds, soft, nontender, no hepatosplenomegaly Musculoskeletal: no cyanosis or clubbing, extremities motor strength 5/5 Skin: no rashes, warm and dry normal turgor Neurologic: PERRL, EOMI, accommodation nl, no face palsy, no dysarthria CN's II- XI intact bilaterally and moves all extremities Psychiatric: A+Ox3, euthymic affect Discharge Data Allergies Allergy/AdvReac Type Severity Reaction Status Date / Time No Known Allergies Allergy Verified 08/21/22 07:40 Consultations 11/13/22 06:26 ED Decision to Admit Stat 11/13/22 08:11 Consult Cardiology Routine Procedures Performed Operation Date: 11/13/22 10:00 Actual Procedures s Cineradiography w/Routine Exam - Christiano Brown MD, PhD p Cath, Coronaries ONLY (no LV) - Christiano Brown MD, PhD s Ultrasound Vascular Access - Christiano Brown MD, PhD Ordered Studies 11/13/22 09:57 CL Cath Imgs for PACS use only Routine Hospital Course (1) NSTEMI (non-ST elevated myocardial infarction): Patient is a 41-year-old male with history of Hodgkin's lymphoma diagnosed at age of 27; treated with radiation and chemotherapy He presented to the ED with evaluation of chest pain radiating to the jaw. History of exertional chest discomfort since last year. High sensitive troponin is 39.8 which up trended to a 802 in 3 hours Patient was started on heparin drip, aspirin and high-dose statin EKG shows normal sinus rhythm; no significant ST or T wave changes Echocardiogram was done which showed ejection fraction of 55 to 60% with no regional wall motion abnormality. No valvular pathology or pericardial effusion seen Patient was taken to left heart cath immediately by cardiology; found to have left dominant coronary system. Left main and multivessel coronary heart disease noted with culprit stenosis a left PDA branch of the circumflex coronary artery which appears acute. Patient have IABP placed by cardiology. To be admitted to ICU prior to transfer Patient to be transferred to tertiary care center at [facility] for CABG. Total Time Total Time Spent Total Time Spent (In Minutes): 35 Discharge Plan Discharge Items Patient Disposition: Transfer Acute Care Hospital Reason For Visit: SEVERE JAW AND CHEST PAIN Discharge Diagnosis: NSTEMI Activity: As commented below Activity Comment: Bedrest Non-emergency contact: Primary Care Provider Call non-emergency contact if: you have any medication questions Follow-up/Referrals: Gerri Liu DO [Primary Care Provider] - Diet: Regular Addtl Attending Provider Instructions: Patient is a 41-year-old male with history of Hodgkin's lymphoma diagnosed at age of 27; treated with radiation and chemotherapy He presented to the ED with evaluation of chest pain radiating to the jaw. History of exertional chest discomfort since last year. High sensitive troponin is 39.8 which up trended to a 802 in 3 hours Patient was started on heparin drip, aspirin and high-dose statin EKG shows normal sinus rhythm; no significant ST or T wave changes Echocardiogram was done which showed ejection fraction of 55 to 60% with no regional wall motion abnormality. No valvular pathology or pericardial effusion seen Patient was taken to left heart cath immediately by cardiology; found to have left dominant coronary system. Left main and multivessel coronary heart disease noted with culprit stenosis a left PDA branch of the circumflex coronary artery which appears acute. Patient to be transferred to tertiary care center at [facility] for CABG. Addtl Latex Dipper Provider Instructions: Current Inpatient Medications Acetaminophen (Acetaminophen 325 Mg Tab) 650 mg PO Q4H PRN PRN Reason: Pain or Fever Stop: 12/13/22 08:10 Aspirin (Aspirin 81 Mg Ectab) 81 mg PO QAM [facility] Stop: 12/13/22 08:59 Last Admin: 11/13/22 08:47 Dose: 81 mg Atorvastatin Calcium (Atorvastatin 40 Mg Tab) 80 mg PO QAM [facility] Stop: 12/13/22 09:59 Last Admin: 11/13/22 12:12 Dose: 80 mg Heparin Sodium/Dextrose (Heparin Sodium/Dextrose) 25,000 units in 500 mls @ 29 mls/hr IV .[id number] [facility]; Protocol Stop: 12/13/22 06:29 Last Admin: 11/13/22 06:26 Dose: 1,450 units/hr, 29 mls/hr Metoprolol Tartrate (Metoprolol Tartrate 25 Mg Tab) 25 mg PO BID [facility] Stop: 12/13/22 09:59 Last Admin: 11/13/22 12:12 Dose: 25 mg Miscellaneous (Mesalamine- Order Awaiting Action) 1 each N/A QS [facility] Stop: 12/13/22 15:59 Nitroglycerin (Nitroglycerin 2% Ointment 30gm Tube) 0.5 inch EXT Q6H [facility] Stop: 12/13/22 06:59 Last Admin: 11/13/22 12:12 Dose: 0.5 inch Nitroglycerin (Nitroglycerin Sl 0.4 Mg/Tab Tab) 0.4 mg SL Q5M PRN PRN Reason: Chest Pain Stop: 12/13/22 08:10 Pantoprazole Sodium (Pantoprazole 40 Mg Tab) 40 mg PO DAILY [facility] Stop: 12/13/22 08:59 Last Admin: 11/13/22 08:47 Dose: 40 mg Pending Studies at Discharge: No Stand-Alone Forms: [facility] Skilled Items Patient informed of condition?: Yes DNR: No Discharge Level of Care: Other Communicable Disease: No Discharge Prognosis: Stable Lines: Peripheral IV Urinary Catheter: No Medications and DC Order Prescriptions: Continued fexofenadine 180 mg Tablet 180 mg PO DAILY PRN (Reason: Allergy Symptoms) omeprazole 20 mg capsule,delayed release(DR/EC) 20 mg PO DAILY mesalamine 1.2 gram tablet,delayed release (DR/EC) 2.4 g PO DAILY fluticasone furoate 27.5 mcg/actuation [place],Suspension 2 spray INTRANASAL BID PRN (Reason: Allergy Symptoms) Rx Instructions: into each nostril lisinopril 20 mg Tablet 20 mg PO DAILY Discharge Orders: Discharge Order (Routine); Ordered 11/13/22 Ordered By: Óscar Gatica Admission Data Admit Date/Time: 11/13/22 07:05 Attending Provider: Óscar Gatica Admit Provider: Mingo Otto Primary Care Provider: Gerri Liu Other Providers: Mingo Otto ; Christiano Matthew ; Cordell Coleman
--- NOTE | 2022-11-13 12:33 | Electrocardiogram Report ---
Test Reason : Blood Pressure : / mmHG Vent. Rate : 096 BPM Atrial Rate : 096 BPM P-R Int : 130 ms QRS Dur : 080 ms QT Int : 356 ms P-R-T Axes : 056 066 106 degrees QTc Int : 449 ms Normal sinus rhythm Normal ECG When compared with ECG of 25-JUN-2014 21:52, No significant change was found Confirmed by Luke Hargrove ([id number]) on 11/13/2022 12:32:36 PM Referred By: REFERRED SELF Confirmed By:Tim Hargrove
--- NOTE | 2022-11-13 12:50 | Communication Note ---
Date of Service: November 13, 2022 Patient seen in follow-up postcardiac catheterization. Results of catheterization discussed with patient, and his spouse and father. Catheterization films reviewed and case reviewed with Dr. Brown of interventional cardiology. Patient with left dominant coronary system. Left main and multivessel coronary heart disease noted with culprit stenosis a left PDA branch of the circumflex coronary artery which appears acute. Patient without ongoing angina while on [employer] table. At the time of my reassessment of the patient in room 221 post procedure he remained asymptomatic with blood pressure of 150/101 followed by 129/91. 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 He therefore had a second arterial access via the right femoral artery for the diagnostic case. -- Patient transferred back to room 221 post procedure, right radial band in place without hematoma. -- His most recent blood pressures post procedure were 150/101 and 129/91. -- Case discussed with Dr. Asher of CT surgery and Dr Duque clinical cardiology. Dr Duque accepts the patient in transfer. --Awaiting determination if air transport available from a weather standpoint. --Depending on patient's condition and timing of transport will determine if intraaortic balloon pump placement is indicated prior to transfer.
[2022-11-13 13:42] LABS: Partial Thromboplastin Time 111.4 Seconds (21.0-31.0)
--- NOTE | 2022-11-13 15:12 | Post Anesthesia Assessment ---
Date of Service November 13, 2022 Post Sedation Assessment Vital Signs Temp Pulse Pulse Resp BP BP Pulse Ox 11/13/22 13:55 89 18 133/89 98 11/13/22 13:25 87 16 139/92 98 11/13/22 12:55 89 18 142/90 H 97 11/13/22 12:32 93 H 18 150/101 H 98 11/13/22 12:40 89 18 129/91 97 11/13/22 12:11 95 H 16 143/84 H 97 11/13/22 11:55 36.8 C 93 H 18 142/95 H 97 11/13/22 08:11 11/13/22 08:11 36.3 C L 90 18 149/107 H 97 11/13/22 07:42 83 20 141/92 H 100 11/13/22 07:30 75 10 L 99 11/13/22 07:30 137/97 11/13/22 07:20 80 7 L 99 11/13/22 07:20 145/101 H 11/13/22 07:10 77 15 100 11/13/22 07:10 138/100 11/13/22 07:00 95 H 19 99 11/13/22 07:00 134/96 11/13/22 06:50 80 10 L 145/106 H 100 11/13/22 06:40 91 H 14 171/115 H 100 11/13/22 06:30 84 12 144/99 H 98 11/13/22 06:20 88 7 L 136/98 98 11/13/22 06:10 85 15 146/120 H 100 11/13/22 06:00 90 15 147/107 H 98 11/13/22 05:40 82 12 153/115 H 95 11/13/22 05:31 95 H 15 157/121 H 93 11/13/22 05:16 94 H 22 167/128 H 99 11/13/22 06:41 84 18 98 11/13/22 05:05 105 H 11/13/22 05:05 107 H 15 160/125 H 98 11/13/22 05:10 36.6 C 102 H 18 98 11/13/22 05:29 101 H 167/128 H 11/13/22 05:03 36.6 C 102 H 18 160/125 H 98 O2 Del Method O2 Flow Rate 11/13/22 13:55 Room Air 11/13/22 13:25 Room Air 11/13/22 12:55 Room Air 11/13/22 12:32 Room Air 11/13/22 12:40 Room Air 11/13/22 12:11 Room Air 11/13/22 11:55 Room Air 11/13/22 08:11 Room Air 11/13/22 08:11 Room Air 11/13/22 07:42 Room Air 11/13/22 07:30 11/13/22 07:30 11/13/22 07:20 11/13/22 07:20 11/13/22 07:10 11/13/22 07:10 11/13/22 07:00 11/13/22 07:00 11/13/22 06:50 11/13/22 06:40 11/13/22 06:30 11/13/22 06:20 11/13/22 06:10 11/13/22 06:00 11/13/22 05:40 11/13/22 05:31 11/13/22 05:16 11/13/22 06:41 3 11/13/22 05:05 11/13/22 05:05 11/13/22 05:10 Room Air 11/13/22 05:29 11/13/22 05:03 Recovery Score Activity: Moves 4 extremities Respiration: Deep Breath/Cough Circulation: +/-20% PreAnes Value Consciousness: Fully Awake Oxygen Saturation: > 92% On Room Air Discharge Sedation Level of Care: Fast Track Phase II Post Sedation Plan On clinical assessment, the patient appears to have tolerated the sedation without complications. Patient is recovering as anticipated. Patient will continue to be monitored by nursing and may be discharged when sedation discharge criteria are met per below protocol. Upon Completions of procedure up to 15 minutes continue every 5 minute vital signs and the P.A.R. score; then discharge to a Phase I or Fast Track to Phase II per the following guidelines: * Discharge Patient to appropriate Phase II area if PAR is 8 or greater or return to pre- procedure baseline. The post - procedure orders will be as directed. * If PAR score is less than 8 or not return to pre-procedure baseline then patient will follow Phase I monitoring till PAR is reached for Phase II. The Phase I may be done in procedure room or may call to secure a Phase I area. * If naloxone or flumazenil are used for reversal, hold in Phase I for continued monitoring from when last reversal dose was given for a minimum of 60 minutes or longer pending the nurse and/or physician discretion of patient condition before discharge to Phase II. Please call the Sedation Physician to re-evaluate and complete post-note for discharge to Phase II area. Do NOT discharge from procedure sedation or Phase 1 until post- sedation evaluation note is complete by procedure /sedation MD Sedation Discharge Instructions to be given to the patient at discharge to home. [facility] Procedure Codes (Charges) Indication for Procedure Indication for procedure: MV CAD transfer for CABG Sedation/Anesthesia Procedure 1: Sedation/Anesthesia: 91695 Mod Sedation by the same physician;Init15 Min Child Age 5 & Up (start 1442, end 1506) Total Sedation Time (minutes): 24 Procedure 2: Sedation/Anesthesia: 26008 Mod Sedation by the same physician; Ea [id number] Minutes (additional 9 min) Total Sedation Time (minutes): 24
--- NOTE | 2022-11-13 16:41 | Critical Care Consultation ---
Date of Consultation November 13, 2022 Assessment & Plan (1) Acute non-ST elevation myocardial infarction (NSTEMI): Hemodynamically stable, status post balloon pump placement awaiting ACLS transport to [facility] (2) Dyslipidemia: (3) Hypertension: (4) Hepatitis C virus: (5) Ulcerative colitis: History of Present Illness Reason for Consultation: Aortic balloon pump Attending Physician: Óscar Gatica MD History of Present Illness Patient is a 41-year-old male who is currently hemodynamically stable secondary with triple vessel ischemic disease who has been accepted to [facility] for probable coronary artery bypass grafting. [facility] requested placement of aortic balloon pump, during that timeframe helicopter EMS had become unavailable due to weather. We are facilitating ground transport to [facility] and patient requires short ICU stay in the interim. Allergies Allergy/AdvReac Type Severity Reaction Status Date / Time No Known Allergies Allergy Verified 08/21/22 07:40 Home Medications Medication Instructions Recorded Confirmed Type fexofenadine 180 mg tablet 180 mg PO DAILY PRN Allergy 08/21/22 11/13/22 History Symptoms fluticasone furoate 27.5 2 spray intranasal BID PRN Allergy 08/21/22 11/13/22 History mcg/actuation nasal Symptoms spray,suspension mesalamine 1.2 gram tablet,delayed 2.4 g PO DAILY 08/21/22 11/13/22 History release omeprazole 20 mg capsule,delayed 20 mg PO DAILY 08/21/22 11/13/22 History release lisinopril 20 mg tablet 20 mg PO DAILY 11/13/22 11/13/22 History Patient History Medical History Hepatitis C virus History of ulcerative colitis Surgical History History of abdominal surgery History of colonoscopy Social History Smoking Status: Never smoker Hx Alcohol Use: No Hx Substance Use: No Preferred Language: Bengali Communication Ability: Effective Supervisor Plasma Required: No Beliefs That Will Affect Care: None Current Living Situation: Spouse and Family current occupational status: employed Other Information That Helps Us Care for You: No Feels Safe at Home: Yes Safety Concerns: Feels Safe At This Time Assistive Devices: Glasses Assistive Devices Comment: Bridge Physical Exam Physical Exam: General: Alert. nontoxic. Skin: Warm, dry, Head: Atraumatic Ears, nose, mouth and throat: airway patent Cardiovascular: Normal peripheral perfusion Respiratory: no respiratory distress Gastrointestinal: Non distended Musculoskeletal: No deformity, left lower extremity in knee immobilizer with aortic balloon placement Results & Data Results & Data Vital Signs (Past 12 Hours) Vital Signs Temp Pulse Pulse Resp BP BP Pulse Ox 11/13/22 13:55 89 18 133/89 98 11/13/22 13:25 87 16 139/92 98 11/13/22 12:55 89 18 142/90 H 97 11/13/22 12:32 93 H 18 150/101 H 98 11/13/22 12:40 89 18 129/91 97 11/13/22 12:11 95 H 16 143/84 H 97 11/13/22 11:55 36.8 C 93 H 18 142/95 H 97 11/13/22 08:11 11/13/22 08:11 36.3 C L 90 18 149/107 H 97 11/13/22 07:42 83 20 141/92 H 100 11/13/22 07:30 75 10 L 99 11/13/22 07:30 137/97 11/13/22 07:20 80 7 L 99 11/13/22 07:20 145/101 H 11/13/22 07:10 77 15 100 11/13/22 07:10 138/100 11/13/22 07:00 95 H 19 99 11/13/22 07:00 134/96 11/13/22 06:50 80 10 L 145/106 H 100 11/13/22 06:40 91 H 14 171/115 H 100 11/13/22 06:30 84 12 144/99 H 98 11/13/22 06:20 88 7 L 136/98 98 11/13/22 06:10 85 15 146/120 H 100 11/13/22 06:00 90 15 147/107 H 98 11/13/22 05:40 82 12 153/115 H 95 11/13/22 05:31 95 H 15 157/121 H 93 11/13/22 05:16 94 H 22 167/128 H 99 11/13/22 06:41 84 18 98 11/13/22 05:05 105 H 11/13/22 05:05 107 H 15 160/125 H 98 11/13/22 05:10 36.6 C 102 H 18 98 11/13/22 05:29 101 H 167/128 H 11/13/22 05:03 36.6 C 102 H 18 160/125 H 98 O2 Del Method O2 Flow Rate 11/13/22 13:55 Room Air 11/13/22 13:25 Room Air 11/13/22 12:55 Room Air 11/13/22 12:32 Room Air 11/13/22 12:40 Room Air 11/13/22 12:11 Room Air 11/13/22 11:55 Room Air 11/13/22 08:11 Room Air 11/13/22 08:11 Room Air 11/13/22 07:42 Room Air 11/13/22 07:30 11/13/22 07:30 11/13/22 07:20 11/13/22 07:20 11/13/22 07:10 11/13/22 07:10 11/13/22 07:00 11/13/22 07:00 11/13/22 06:50 11/13/22 06:40 11/13/22 06:30 11/13/22 06:20 11/13/22 06:10 11/13/22 06:00 11/13/22 05:40 11/13/22 05:31 11/13/22 05:16 11/13/22 06:41 3 11/13/22 05:05 11/13/22 05:05 11/13/22 05:10 Room Air 11/13/22 05:29 11/13/22 05:03 Critical Care Results & Data Vital Signs (Past 12 Hours) Vital Signs Temp Pulse Pulse Resp BP BP Pulse Ox 11/13/22 13:55 89 18 133/89 98 11/13/22 13:25 87 16 139/92 98 11/13/22 12:55 89 18 142/90 H 97 11/13/22 12:32 93 H 18 150/101 H 98 11/13/22 12:40 89 18 129/91 97 11/13/22 12:11 95 H 16 143/84 H 97 11/13/22 11:55 36.8 C 93 H 18 142/95 H 97 11/13/22 08:11 11/13/22 08:11 36.3 C L 90 18 149/107 H 97 11/13/22 07:42 83 20 141/92 H 100 11/13/22 07:30 75 10 L 99 11/13/22 07:30 137/97 11/13/22 07:20 80 7 L 99 11/13/22 07:20 145/101 H 11/13/22 07:10 77 15 100 11/13/22 07:10 138/100 11/13/22 07:00 95 H 19 99 11/13/22 07:00 134/96 11/13/22 06:50 80 10 L 145/106 H 100 11/13/22 06:40 91 H 14 171/115 H 100 11/13/22 06:30 84 12 144/99 H 98 11/13/22 06:20 88 7 L 136/98 98 11/13/22 06:10 85 15 146/120 H 100 11/13/22 06:00 90 15 147/107 H 98 11/13/22 05:40 82 12 153/115 H 95 11/13/22 05:31 95 H 15 157/121 H 93 11/13/22 05:16 94 H 22 167/128 H 99 11/13/22 06:41 84 18 98 11/13/22 05:05 105 H 11/13/22 05:05 107 H 15 160/125 H 98 11/13/22 05:10 36.6 C 102 H 18 98 11/13/22 05:29 101 H 167/128 H 11/13/22 05:03 36.6 C 102 H 18 160/125 H 98 O2 Del Method O2 Flow Rate 11/13/22 13:55 Room Air 11/13/22 13:25 Room Air 11/13/22 12:55 Room Air 11/13/22 12:32 Room Air 11/13/22 12:40 Room Air 11/13/22 12:11 Room Air 11/13/22 11:55 Room Air 11/13/22 08:11 Room Air 11/13/22 08:11 Room Air 11/13/22 07:42 Room Air 11/13/22 07:30 11/13/22 07:30 11/13/22 07:20 11/13/22 07:20 11/13/22 07:10 11/13/22 07:10 11/13/22 07:00 11/13/22 07:00 11/13/22 06:50 11/13/22 06:40 11/13/22 06:30 11/13/22 06:20 11/13/22 06:10 11/13/22 06:00 11/13/22 05:40 11/13/22 05:31 11/13/22 05:16 11/13/22 06:41 3 11/13/22 05:05 11/13/22 05:05 11/13/22 05:10 Room Air 11/13/22 05:29 11/13/22 05:03 Lab & Micro Results (Past 24 Hours) RBC 5.65 M/uL (4.70-6.10) 11/13/22 WBC 9.37 K/ul (4.8-10.8) 11/13/22 Hgb 16.0 g/dl (14.0-18.0) 11/13/22 Hct 46.8 % (42.0-52.0) 11/13/22 MCV 82.8 fL (80.0-100.0) 11/13/22 MCH 28.3 pg (25.0-34.0) 11/13/22 MCHC 34.2 g/dL (32.0-36.0) 11/13/22 RDW Standard Deviation 37.4 fL (36.4-46.3) 11/13/22 RDW Coefficient of Variation 12.4 % (11.5-14.5) 11/13/22 Plt Count 211 K/uL (130-400) 11/13/22 MPV 10.1 fL (9.4-12.4) 11/13/22 Neutrophils (%) (Auto) 67.5 % 11/13/22 Lymphocytes (%) (Auto) 20.6 % 11/13/22 Monocytes # (Auto) 0.80 K/uL (0.11-0.59) H 11/13/22 Eosinophils # (Auto) 0.22 K/uL (0-0.50) 11/13/22 Immature Granulocyte % (Auto) 0.6 % 11/13/22 Neutrophils # (Auto) 6.31 K/uL (1.40-6.50) 11/13/22 Lymphocytes # (Auto) 1.93 K/uL (1.2-3.4) 11/13/22 Monocytes # (Auto) 0.80 K/uL (0.11-0.59) H 11/13/22 Eosinophils # (Auto) 0.22 K/uL (0-0.50) 11/13/22 Basophils # (Auto) 0.05 K/uL (0-0.2) 11/13/22 Immature Granulocyte # (Auto) 0.06 K/uL (0.01-0.20) 3 Na 139 mmol/L (136-145) 11/13/22 K 3.7 mmol/L (3.5-5.1) 11/13/22 Cl 105 mmol/L (98-107) 11/13/22 CO2 27 mmol/L (21-32) 11/13/22 Anion Gap 7 (3-11) 11/13/22 BUN 21 mg/dl (6-23) 11/13/22 Creatinine 1.14 mg/dl (0.6-1.4) 11/13/22 Estimated GFR ( Amer) 92.7 ml/min 11/13/22 Estimated GFR (Non-Af Amer) 80.0 ml/min 11/13/22 BUN/Creatinine Ratio 18.4 (10-20) 11/13/22 Glu 104 mg/dl (70-99(Fasting)) H 11/13/22 Ca 9.0 mg/dl (8.6-10.3) 11/13/22 Total Bilirubin 0.6 mg/dl (0.2-1.0) 11/13/22 AST 17 U/L (13-39) 11/13/22 ALT 36 U/L (7-52) 11/13/22 Alkaline Phosphatase 105 U/L (34-104) H 11/13/22 TP 6.2 gm/dl (6.0-8.3) 11/13/22 Albumin 4.3 gm/dl (3.4-5.0) 11/13/22 Globulin 1.9 gm/dl (2.5-4.0) L 11/13/22 Albumin/Globulin Ratio 2.3 (0.9-2) H 11/13/22 Calcium Level 9.0 mg/dl (8.6-10.3) 11/13/22 05:10 Prothromb Time International Ratio 1.0 (0.9-1.1) 11/13/22 06:2 0 Diagnostic Findings (Past 24 Hours) Chest X-Ray 11/13/22 05:18 XR chest 1V portable HISTORY: 41 years-old Male Chest pain, nonspecific COMPARISON: 06/25/2014 TECHNIQUE: AP view of the chest FINDINGS: Cardiomediastinal and hilar silhouettes are within normal limits. No pneumothorax, pleural effusion, airspace consolidation or pulmonary edema. Bones appear grossly intact. Mild levoscoliosis of the upper thoracic spine. IMPRESSION: No acute process. ACT 112: Negative or not required by law. The above report was generated using voice recognition software. It may contain grammatical, syntax or spelling errors. Electronically signed by: Sven Jackson M.D. 11/13/2022 6:46 AM I & O Totals 24 Hours 11/12/22 11/13/22 11/14/22 06:59 06:59 06:59 Intake Total 211.217 / 211.217 Output Total 850 / 850 Balance -638.783 / -638.783 Cumulative 11/13/22 04:44 thru 11/13/22 14:14 Intake Total 211.217 Output Total 850 Balance -638.783 RT Ventilator Mngmt (Last Documented) Ventilator Ordered Settings Respiratory Rate 18 11/13/22 13:55 Ventilator - PT Measurements Respiratory Rate 18 Coding Level of Care Code 17005 IN/OBS CONSULT LVL 2,35M Diagnoses Acute non-ST elevation myocardial infarction (NSTEMI) I21.4 Dyslipidemia E78.5 Hypertension I10 Hepatitis C virus B19.20 Ulcerative colitis K51.90
--- NOTE | 2022-11-13 17:09 | Cardiac Catheterization ---
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 Major Cardiac Status Clinical evaluation leading to the procedure CAD Presenation: Non STEMI Anginal Classification: CCS IV Heart Failure: No Cardiogenic Shock within 24 Hours: No Cardiac Arrest within 24 Hours: No Imaging Studies Past 6 Months: No Coronary Anatomy Dominant: Left Left Main (% Stenosis): Distal (70 to 90%) LAD (% Stenosis): Proximal (80 to 90%), Mid (80 to 90%) and Distal (50%) D1 (% Stenosis): Ostial (90%) and Proximal (70%) Circumflex (% Stenosis): Normal OM1 (% Stenosis): Normal OM2 (% Stenosis): Normal OM3 (% Stenosis): Proximal (99%) L PL1 (% Stenosis): Proximal (90%) L PDA (% Stenosis): Proximal (100%, appears acute) RCA (% Stenosis): Proximal (30 to 40%) Ramus (% Stenosis): Ostial (Diffuse subtotal occlusion) Diagnostic Physicians Name: Christiano Brown MD, PhD Closure Device Percutaneous Entry Location: Initial radial, completed femoral Closure Device: Angio-Seal and Radial Band Recommendations: CABG Cardiac Cath Procedure Full Procedure Date November 13, 2022 Pre-Procedure Diagnosis Pre-Procedure Diagnosis: Non STEMI AUC Score AUC Score: 07 Post-Procedure Diagnosis Post-Procedure Diagnosis: Severe CAD Procedure(s) Performed Procedure(s) Performed: Coronary Angiography and Ultrasound Guided Vascular Access Manager Process Christiano Brown MD, PhD Estimated Blood Loss Estimated Blood Loss: 5 mL Medication(s) Medication(s): Fentanyl, Heparin, Lidocaine 1%, Nicardipine, Nitroglycerin and Versed Summary of Findings Brief description: Patient was brought to the cardiac catheterization suite where he was shaved and prepped in a sterile fashion. Sedated using IV Versed and fentanyl. Soft tissues of the right wrist were anesthetized using 2mL of 1% Xylocaine. The right radial artery was accessed using a modified Seldinger technique and a 6 Gu[place]an radial artery glide sheath was placed. Patient was provided anticoagulation with IV heparin and antispasmodics including nicardipine and nitroglycerin. All catheters were advanced and exchanged over a 0.035 J-tip wire. Right coronary angiography was performed in orthogonal views with a 5 [place] 4 diagnostic catheter. Left coronary angiography was attempted using a 5 [place] 4 diagnostic catheter but this would not remain in the coronary for angiography. Therefore, it was exchanged for a 6 [place] JL 4 guide catheter. Unfortunately, this could not be advanced beyond the distal portion of the brachial artery. Patient had severe pain. Removal of the catheter and angiography of the right arm was performed. This demonstrated evidence of dissection and contained perforation. Examination of the catheter tip showed that it had been damaged. Decision was made to complete coronary angiography via the femoral artery approach. Soft tissues of the right groin were anesthetized using 10 mils of 1% Xylocaine. Using the ultrasound for guidance (image saved), the right femoral artery was accessed and a 6 Gu[place]an femoral artery sheath was placed. A 6 [place] JL 4 guide catheter was then advanced and used to engage the left main coronary. Multiple angiographic views of left coronary system were obtained. Guide catheter was removed. Limited right femoral artery angiography was performed to evaluate for closure. Findings were favorable, therefore, the femoral artery sheath was removed and hemostasis was obtained immediately using the Angio-Seal closure device. This was deployed in the recommended fashion. Patient remained hemodynamically stable and asymptomatic. He was therefore returned to the recovery area. Given the findings on the coronary angiography, case was reviewed with Dr. Edward mcbride. Decision was made for the patient to be transferred to [facility] in [facility] for surgical revascularization. Also, the right arm was reevaluated and at this point the patient's pain has significantly diminished. There was no evidence of ongoing bleed/swelling. Patient was hemodynamically stable with plans for transfer to tertiary center. This ended the case. Coronary angiography findings: [id number] trifurcating into LAD, circumflex, and ramus. Distally there is disease appearing between 70 and 90% stenosed. LAD- Large caliber vessel. The proximal and mid segment have diffuse severe disease appearing 80 to 90% stenosis. It does give a large septal branch and a medium to large first diagonal which has diffuse proximal disease of 90% at the ostium and 70% before the first branch. The distal vessel is large in caliber with 50 to 60% stenosis as the vessel up approaches the apex. LCx-large caliber and dominant vessel. Travels in the AV groove giving a small OM1, medium to large caliber OM 2, a large caliber OM 3 and then distally provides a large left PDA which appears to be acutely 100% occluded and a large left PLB which has proximal 90% stenosis. The OM 3 also has proximal severe stenosis of 99%. The PDA is the culprit lesion for non-ST elevation IL. Ramus- This is small caliber but long and is subtotally occluded. Fills late via left to left collateralization. RCA-medium caliber and nondominant. Proximal moderate disease. Summary: 1. Severe multivessel coronary disease involving the left main, LAD, first diagonal, ramus, OM 3, posterolateral branch, and what appears to be an acute lesion/occlusion of the PDA. 2. Complication at the right upper extremity (brachial artery) secondary to catheter induced dissection. This appears stable. 3. Recommend multivessel revascularization with CABG versus staged multivessel PCI at tertiary center. 4. Patient without angina, hemodynamically stable, and no significant arrhythmia at this time. We will continue with guideline directed medical therapy for secondary prevention of coronary disease including aspirin, beta- gianfranco, and high intensity statin therapy. In addition, we will have him resume heparin drip and will closely monitor his right upper extremity. Hemodynamics Rest Ao:: 116/88 mmHg Final Ao: 124/91 mmHg LV: Not performed Recommendations Recommendations: CABG Radiation Exposure (mGy) 789 mGy, fluoroscopy time 4.6 minutes Contrast (mls) 110 mL Anesthesia 1 mg IV Versed, 50 mcg IV fentanyl Procedural Complication(s) Right upper extremity access site dissection. Disposition Recovery Room\PACU I attest to the content of the Intraoperative Record and any orders documented therein. Any exceptions are noted below. [facility] Card Cath Procedure Codes Cardiac Catheterization Procedure 1: Cardiovascular Cath Procedures: 00098 Coronaries Therapeutic Services & Ancillary Procedure 1: Cardiovascular Tx and Anc Procedures: 05940 Ultrasonic Guidance Vascular Access Moderate Sedation Procedure 1: Sedation/Anesthesia: 38774 Mod Sedation by the same physician;Init15 Min Child Age 5 & Up (Initial 15 min, start time 1039, end time 1124) Procedure 2: Sedation/Anesthesia: 34091 Mod Sedation by the same physician; Ea [id number] Minutes (Additional 30 min, total time 45 min) PG Care Time/CCT Total # of Minutes Spent Total Time Spent with Patient: Total time spent is greater than 50% in coordination of care (as documented) at patient's floor/unit and/or counseling patient:
--- NOTE | 2022-11-13 17:38 | Post Operative Brief Note ---
Cardiology Brief Post Op Date of Surgery November 13, 2022 Pre & Post Diagnosis Operation Date: 11/13/22 14:30 <No data on this case meets the specified criteria> Severe multivessel coronary disease, awaiting cardiac surgery. Need for hemodynamic support. Procedure Ultrasound-guided vascular access Insertion intra-aortic balloon pump counterpulsation Description: Patient was brought to the cardiac catheterization suite where he was shaved and prepped in a sterile fashion. Sedated using IV Versed and fentanyl. Soft tissues of the left groin were anesthetized using 10 mils of 1% Xylocaine. Utilizing the ultrasound for guidance (image saved), the left femoral artery was accessed with a micropuncture kit. This was then exchanged over a wire for the intra-aortic balloon pump sheath. Through this and over the wire the intra aortic balloon pump was advanced and positioned with its tip at the level of the alistair. The balloon was removed, the tubing was flushed, and then the balloon pump was started at 1:1 ratio. We had excellent blood pressure augmentation, the patient was asymptomatic, and we therefore sutured the sheath in place and affixed the balloon pump to the patient. He was then transported to the ICU for further care. This ended the case. Animal Eviscerator Christiano Brown MD, PhD Precipitate Washer Jose Rafael Estimated Blood Loss 5 Findings Consistent with Post-Op Diagnosis The intra-aortic balloon pump is functioning normally and is optimally placed based on fluoroscopic evaluation. Anesthesia Type RN Sedation Complications none Disposition Accompanied Patient To Recovery: Yes Disposition: Surgical ICU Overlapping Procedure I was present for: the critical portions of procedure. [facility] Cardiac Procedure Charge Indication for Procedure Indication for procedure: Multivessel coronary disease, hemodynamic support Cardiovascular Procedure 1: Cardiovascular: 60729 Insertion Of Intra Aortic Balloon Assist
--- NOTE | 2022-11-14 18:52 | Electrocardiogram Report ---
Test Reason : Blood Pressure : / mmHG Vent. Rate : 096 BPM Atrial Rate : 096 BPM P-R Int : 134 ms QRS Dur : 084 ms QT Int : 358 ms P-R-T Axes : 035 038 029 degrees QTc Int : 452 ms Normal sinus rhythm Normal ECG When compared with ECG of 13-NOV-2022 09:14, No significant change was found Confirmed by Luke Hargrove ([id number]) on 11/14/2022 6:52:10 PM Referred By: REFERRED SELF Confirmed By:Tim Hargrove
== END 2022-11-13 17:47 | disposition short-term general hospital (02) | DRG 281 ==
LOC: ED 04:57 → SUATTDRO 07:05 → 2S 07:05 → 1E 16:11
PROC: CLB.CCO (2022-11-13 10:00)